=== PATIENT | female | born 1990 | race Caucasian/White ===

== ENCOUNTER 2020-06-15 23:24 | Emergency (ER) | payer BC, OTHER ==
[~2020-06-15] VITALS: Ht 154.9 cm; Wt 83.0 kg
[2020-06-15] MEDS ORDERED: AMIT10TA PO (23:32)
[2020-06-15] MEDS ORDERED: SUMA25TA3 PO (23:32)
--- NOTE | 2020-06-15 23:44 | NUR ---
PT BIB POV D/T RIGHT FLANK/LOWER BACK PAIN. PER PT SHE HAS URGENCY/FREQUENCY/BURNING WITH URINATION. HAS HISTORY OF UTI'S. PT RESTING IN JAMAR SORENSEN AT THIS TIME, AT BEDSIDE, WCNASREEN.
[2020-06-15 23:56] LABS: HCG UR SG 1.005 (1.003-1.030); MICROSCOPIC AUTO
[2020-06-16] MEDS ORDERED: ACETAMINOPHEN 500 MG TABLET ONE (00:08)
[2020-06-16] MEDS ORDERED: KETOROLAC 30 MG/1 ML ONE (00:23)
[2020-06-16] MEDS ORDERED: SODIUM CHLORIDE 0.9% 1,000ML IVBOLUS ONE (00:30)
[2020-06-16] MEDS ORDERED: ACETAMINOPHEN 500 MG TABLET PO ONE (00:30)
[2020-06-16] MEDS ORDERED: KETOROLAC 30 MG/1 ML IVPush ONE (00:30)
[2020-06-16 00:35] LABS: BASOPHILS % (AUTO) 1 % (0-1); EOSINOPHILS % (AUTO) 1 % (1-7); LYMPHOCYTES % (AUTO) 21 % (22-44); MD NO; MEAN PLATELET VOLUME 8.2 fL (7.4-10.4); MONOCYTES % (AUTO) 7 % (2-9); NEUTROPHILS % (AUTO) 71 % (42-75); PLATELET COUNT 325 x10^3/uL (130-400); RED CELL DISTRIBUTION WIDTH 13.2 % (9.6-15.2)
[2020-06-16 00:44] LABS: ALBUMIN 4.1 g/dL (3.4-5.0); ANION GAP 6 mmol/L (5-15); CALCIUM 8.7 mg/dL (8.5-10.1); CHLORIDE 107 mmol/L (98-107)
[2020-06-16] MEDS ORDERED: CEFTRIAXONE PMX 1GM/50ML 50 ML ONE (01:04)
[2020-06-16 01:22] VITALS: BP 136/92
[2020-06-16] MEDS ORDERED: CEFTRIAXONE PMX 1GM/50ML 50 ML IV ONE (01:30)
[2020-06-16] MEDS ORDERED: ONDANSETRON ODT 4 MG ONE (01:33)
[2020-06-16] MEDS ORDERED: MAALOX/HYOSCYAMINE/LIDOCAINE 45 ML BTL ONE (01:34)
--- NOTE | 2020-06-16 01:37 | NUR ---
REPORT GIVEN TO ADRIANA CORMIER.
--- NOTE | 2020-06-16 01:50 | NUR ---
DISCHARGE INSTRUCTIONS REVIEWED WITH PATIENT. NO FURTHER QUESTIONS. PRESCRIPTION HANDED DIRECTLY TO PATIENT. IV REMOVED PER DC PROTOCOL. VS REMAIN STABLE ON RA. IV ABX AND IVF COMPLETED. ALL PERSONAL BELONGINGS WITH PATIENT UPON DISCHARGE. STEADY GAIT TO LOBBY
== END 2020-06-16 01:55 | disposition home or self-care (01) ==
LOC: ED 06-16 00:40
DX: N10 Acute pyelonephritis (principal); N39.0 Urinary tract infection, site not specified; R30.0 Dysuria
CPT/HCPCS: 36415; 74176; 80048; 81001; 81025; 82040; 85025; 87077; 87086; 87186; 96361; 96365; 96375; 99284; J0696; J1885; J7030